=== PATIENT | female | born 1960 | race Caucasian/White ===

== ENCOUNTER 2019-04-17 07:44 | Outpatient (CLI) | payer OTHER ==
--- NOTE | 2019-04-17 08:30 | Mammography Report ---
Reason: SCREENING MAMMO Procedure Date: 04/17/2019 Accession Number: [id number] / [id number] Procedure: MGS - Screening Mammo Dig Bilat CPT Code: FULL RESULT: EXAM: Screening Mammo Dig Bilat DATE: 04/17/2019 8:10 AM CLINICAL HISTORY: Screening encounter. History of nulliparity. TECHNIQUE: (B) - Bilateral CC and MLO views were obtained. COMPARISON: 07/14/2016. PARENCHYMAL PATTERN: (A) - The breast(s) demonstrate(s) scattered fibroglandular densities. FINDINGS: A grouping of right breast calcifications laterally in the upper right breast is stable. There are no suspicious masses, calcifications, or areas of distortion. IMPRESSION: Benign findings. BI-RADS category 2. RECOMMENDATION: (ANNUAL) - Recommend routine annual screening mammography. BI-RADS CATEGORY: (2) - Benign Findings. STANDARD QUALIFYING STATEMENTS: 1. This examination was reviewed with the aid of Computer-Aided Detection (CAD). 2. A negative or benign imaging report should not preclude biopsy if clinically suspicious findings are present. 3. Dense breasts may obscure an underlying neoplasm. 4. This examination was reviewed without the aid of 3D breast imaging (tomosynthesis).
== END 2019-04-17 07:45 | disposition home or self-care (01) ==
LOC: DI.S 07:44
PROVIDERS: ATTEND Nurse Practitioner Family
DX: Z12.31 Encounter for screening mammogram for malignant neoplasm of breast (principal)
CPT/HCPCS: 77067

== ENCOUNTER 2019-04-17 08:31 | Outpatient (CLI) | payer OTHER ==
--- NOTE | 2019-04-17 10:09 | XRAY Report ---
Reason: PAIN IN RIGHT FOOT Procedure Date: 04/17/2019 Accession Number: [id number] / [id number] Procedure: XRS - Foot 3 View RT CPT Code: FULL RESULT: EXAM: RIGHT FOOT RADIOGRAPHY EXAM DATE: 04/17/2019 07:55 AM. CLINICAL HISTORY: Pain in right foot. COMPARISON: None. TECHNIQUE: 3 views. FINDINGS: Bones: No acute fractures. Status post internal fixation of the distal fibula with 2 longitudinally oriented screws and wires. Joints: Normal. No subluxations. Soft Tissues: Normal. No soft tissue swelling. IMPRESSION: 1. No acute abnormality demonstrated. 2. Status post internal fixation of the distal fibula. RADIA
== END 2019-04-17 08:32 | disposition home or self-care (01) ==
LOC: DI.S 08:31
PROVIDERS: ATTEND Nurse Practitioner Family
DX: M79.671 Pain in right foot (principal)

== ENCOUNTER 2020-11-08 14:41 | Outpatient (CLI) | payer OTHER ==
--- NOTE | 2020-11-09 12:53 | Mammography Report ---
BILATERAL DIGITAL SCREENING MAMMOGRAM 3D/2D: 11/08/2020 CLINICAL: Family history of breast cancer. Routine screening. Comparison is made to exams dated: 04/17/2019 mammogram and 07/04/2016 mammogram - [facility]. There are scattered fibroglandular elements in both breasts. No significant masses, calcifications, or other findings are seen in either breast. There has been no significant interval change. IMPRESSION: NEGATIVE There is no mammographic evidence of malignancy. A 1 year screening mammogram is recommended. This exam was interpreted at Station ID: [id number]. NOTE: For mammograms, a report in lay terms will be sent to the patient. Approximately 15% of breast malignancies will not be visualized mammographically. In the management of a palpable breast mass, a negative mammogram must not discourage biopsy of a clinically suspicious lesion. Electronically Signed By: Rene Sánchez M.D., jr/randyrad:11/08/2020 15:23:07 ACR BI-RADS Category 1: Negative 3341F PARENCHYMAL PATTERN: (A) - The breast(s) demonstrate(s) scattered fibroglandular densities. BI-RADS CATEGORY: (1) - 1 RECOMMENDATION: (ANNUAL) - Recommend routine annual screening mammography. [id number] 1 year screening LATERALITY: (B)
== END 2020-11-08 14:42 | disposition home or self-care (01) ==
LOC: DI.N 14:41
PROVIDERS: ATTEND Registered Nurse
DX: Z12.31 Encounter for screening mammogram for malignant neoplasm of breast (principal); Z80.3 Family history of malignant neoplasm of breast

== ENCOUNTER 2023-07-03 13:55 | Outpatient (CLI) | payer OTHER ==
--- NOTE | 2023-07-04 16:05 | Mammography Report ---
BILATERAL DIGITAL SCREENING MAMMOGRAM 3D/2D: 07/03/2023 CLINICAL: Routine screening. Family history of breast cancer. Comparison is made to exams dated: 11/08/2020 mammogram and 04/17/2019 mammogram - [facility]. There are scattered areas of fibroglandular density in both breasts (category b / 25%-50% glandular t issue). There is a focal asymmetry in the right breast upper outer quadrant at anterior depth. There is an asymmetry in the left breast anterior depth inner region seen on the craniocaudal view on ly. No other significant masses or calcifications are seen in either breast. IMPRESSION: INCOMPLETE: NEEDS ADDITIONAL IMAGING EVALUATION 1) Right breast anterior upper inner quadrant focal asymmetry is indeterminate. A diagnostic mammogr am and ultrasound is recommended. 2) Left breast inner anterior depth asymmetry seen on the CC view only is indeterminate. A diagnosti c mammogram and ultrasound is recommended. Based on the Tyrer Cuzick model (a risk assessment model) the patients lifetime risk is 17.4% and he r 10 year risk is 7.5%. According to the ACR, ACS, and NCCN guidelines, an annual breast MRI exam ngoc ng with mammogram is recommended if the patients lifetime risk is 20% or greater. This exam was interpreted at Station ID: [id number]. NOTE: For mammograms, a report in lay terms will be sent to the patient. Approximately 15% of breast malignancies will not be visualized mammographically. In the management of a palpable breast mass, a negative mammogram must not discourage biopsy of a clinically suspicious lesion. Electronically Signed By: Shaniqua Freed M.D., PH.D eb/:07/03/2023 23:40:05 ACR BI-RADS Category 0: Incomplete 3340F PARENCHYMAL PATTERN: (A) - The breast(s) demonstrate(s) scattered fibroglandular densities. BI-RADS CATEGORY: (0) - 0 Mammo and [place] [id number] Immediate follow-up LATERALITY: (B)
== END 2023-07-03 13:56 | disposition home or self-care (01) ==
LOC: DI.S 13:55
DX: Z12.31 Encounter for screening mammogram for malignant neoplasm of breast (principal); Z80.3 Family history of malignant neoplasm of breast; R92.323 Mammographic fibroglandular density, bilateral breasts; R92.8 Other abnormal and inconclusive findings on diagnostic imaging of breast

== ENCOUNTER 2023-07-23 10:02 | Outpatient (CLI) | payer OTHER ==
--- NOTE | 2023-07-24 15:58 | Ultrasound Report ---
LIMITED ULTRASOUND OF RIGHT BREAST: 07/23/2023 CLINICAL: Patient returns today to evaluate a focal asymmetry in the right breast. Comparison is made to exams dated: 07/23/2023 mammogram, 07/03/2023 mammogram, 11/08/2020 mammogram, mammogram, and 07/04/2016 mammogram - [facility]. Color flow ultrasound of the right breast 9 o'clock region was performed. Javed scale images of the r eal-time examination were reviewed. There is a benign 0.4 cm x 0.5 cm x 0.5 cm oval cyst with a smooth internal wall in the right breast at 9 o'clock anterior depth 2 cm from the nipple. This oval cyst is anechoic with posterior acoustic enhancement. This correlates with mammography findings. Color flow imaging demonstrates that there is no vascularity present. IMPRESSION: BENIGN There is no sonographic evidence of malignancy. The 0.4 cm x 0.5 cm x 0.5 cm oval cyst in the right breast is benign. Return to annual mammogram screening schedule is recommended. This exam was interpreted at Station ID: [id number]. Electronically Signed By: Alexis isidro/anuj:07/23/2023 12:12:57 Ultrasound BI-RADS: 2 Benign BI-RADS CATEGORY: (2) - 2 Mammogram [id number] return to screening LATERALITY: (B)
--- NOTE | 2023-07-24 15:58 | Ultrasound Report ---
LIMITED ULTRASOUND OF LEFT BREAST: 07/23/2023 CLINICAL: Patient returns today to evaluate a focal asymmetry in the left breast. Comparison is made to exams dated: 07/23/2023 mammogram, 07/03/2023 mammogram, 11/08/2020 mammogram, mammogram, and 07/04/2016 mammogram - [facility]. Color flow ultrasound of the left breast 3 o'clock and 9 o'clock regions was performed. Javed scale images of the real-time examination were reviewed. There is a benign cluster of cysts in the left breast at 3 o'clock posterior depth. This finding jenkins s been stable mammographically on multiple prior exams. There also is a benign 0.8 cm x 0.6 cm x 0.2 cm oval normal lymph node with a circumscribed margin in the left breast at 9 o'clock middle depth 4 cm from the nipple. This oval normal lymph node is hypo echoic. This correlates with mammography findings. IMPRESSION: BENIGN There is no sonographic evidence of malignancy. The cluster of cysts in the left breast at 3 o'clock posterior depth is benign. The 0.8 cm x 0.6 cm x 0.2 cm oval normal lymph node in the left breast at 9 o'clock middle depth is b enign. Return to annual mammogram screening schedule is recommended. This exam was interpreted at Station ID: [id number]. Electronically Signed By: Alexis isidro/anuj:07/23/2023 12:17:45 Ultrasound BI-RADS: 2 Benign BI-RADS CATEGORY: (2) - 2 Mammogram [id number] return to screening LATERALITY: (B)
--- NOTE | 2023-07-24 15:58 | Mammography Report ---
BILATERAL DIGITAL DIAGNOSTIC MAMMOGRAM 3D/2D: 07/23/2023 CLINICAL: Patient returns today to evaluate asymmetries in bilateral breasts. Comparison is made to exams dated: 11/08/2020 mammogram, 04/17/2019 mammogram, 07/03/2023 mammogram, and 07/04/2016 mammogram - [facility]. There are scattered areas of fibroglandular density in both breasts (category b / 25%-50% glandular t issue). There is an oval focal asymmetry with a circumscribed margin in the right breast at 9 o'clock anterio r depth. This is seen in additional views. There is an oval focal asymmetry with a circumscribed margin in the left breast at 10 o'clock anterio r depth. This is seen in additional views. No other significant masses or calcifications are seen in either breast. IMPRESSION: INCOMPLETE: NEEDS ADDITIONAL IMAGING EVALUATION The oval focal asymmetry in the right breast at 9 o'clock anterior depth is indeterminate. An ultras ound is recommended. The oval focal asymmetry in the left breast at 10 o'clock anterior depth is indeterminate. An ultras ound is recommended. Based on the Tyrer Cuzick model (a risk assessment model) the patients lifetime risk is 17.4% and he r 10 year risk is 7.5%. According to the ACR, ACS, and NCCN guidelines, an annual breast MRI exam ngoc ng with mammogram is recommended if the patients lifetime risk is 20% or greater. This exam was interpreted at Station ID: [id number]. NOTE: For mammograms, a report in lay terms will be sent to the patient. Approximately 15% of breast malignancies will not be visualized mammographically. In the management of a palpable breast mass, a negative mammogram must not discourage biopsy of a clinically suspicious lesion. Electronically Signed By: Alexis isidro/anuj:07/23/2023 12:11:10 ACR BI-RADS Category 0: Incomplete 3340F PARENCHYMAL PATTERN: (A) - The breast(s) demonstrate(s) scattered fibroglandular densities. BI-RADS CATEGORY: (0) - 0 Ultrasound [id number] Immediate follow-up LATERALITY: (B)
== END 2023-07-23 10:03 | disposition home or self-care (01) ==
LOC: DI 10:02
PROVIDERS: ATTEND Registered Nurse
DX: N60.01 Solitary cyst of right breast (principal); N60.12 Diffuse cystic mastopathy of left breast